=== PATIENT | female | born 1945 | race Caucasian/White ===

== ENCOUNTER → 2016-12-09 | Emergency (ER) | payer MEDICARE, OTHER ==
[~2016-12-09] VITALS: Ht 160 cm; Wt 60.0 kg
[~2016-12-09] MED LIST: AMIT10TA6 PO; ATOR80TA75 PO; CARI350T29 PO; DULO60CA59 PO; LEVO25TA53 PO; LORA-401 PO; LORA1TAB PO; NICARDipine HCL 30 MG CAPSULE PO ONE; OMEP20CA16 PO; PROP20TA4 PO; PROPANOLOL PO; SUCR1TAB56 PO; TRAM-40 PO; [UNRECOGNIZED DRUG - CODE] PO
[2016-12-09 21:17] VITALS: Ht 160 cm; Wt 60.0 kg
--- NOTE | 2016-12-09 22:35 | ERD ---
ER Documentation Chief Complaint Date/Time DATE: 12/09/16 TIME: 22:34 Chief Complaint HTN HPI This is 71-year-old female has been taking Mucomyst for a upper respiratory illness for the past couple days is complaining of high blood pressure readings today of 160/114 at the highest usually 160s over 80s. She is completely asymptomatic no headache blurry vision dizziness chest pain shortness of breath or fever or abdominal pain or back pain ROS All systems reviewed and are negative except as per history of present illness. Medications Home Meds Reported Medications Atorvastatin* (Atorvastatin*) 80 Mg Tablet, 80 MG PO QHS, #30 TAB 12/09/16 Propranolol Hcl* (Propranolol Hcl*) 20 Mg Tablet, 20 MG PO BID, TAB 12/09/16 Levothyroxine Sodium* (Levothyroxine Sodium*) 25 Mcg Tablet, 25 MCG PO BEFORE BREAKFAST, #30 TAB 12/09/16 Verapamil Hcl* (Isoptin*) 80 Mg Tab, 80 MG PO TID, TAB 12/09/16 Duloxetine Hcl* (Duloxetine Hcl*) 60 Mg Capsule.dr, 60 MG PO BID, #30 CAP 12/09/16 Carisoprodol* (Carisoprodol*) 350 Mg Tablet, 350 MG PO QHS Y for MUSCLE SPASMS, TAB 12/09/16 Lorazepam* (Lorazepam*) 1 Mg Tablet, 2 MG PO TID Y for ANXIETY, #30 TAB TAKE 1/2 QAM AND 1/2 QPM, AND 1 QHS 12/09/16 Discontinued Reported Medications [Propanolol] No Conflict Check, 5 MG PO TID 07/10/14 Amitriptyline Hcl* (Amitriptyline Hcl*) 10 Mg Tablet, 10 MG PO TID 05/07/11 Lorazepam* (Ativan*) 1 Mg Tablet, 1 MG PO TID 05/07/11 Allergies Allergies: Coded Allergies: Tetanus Vaccines and Toxoid (Verified Allergy, Unknown, SWELLING OF BODY, 12/09/16) PMhx/Soc Anesthesia Reaction: No Hx Neurological Disorder: No Hx Respiratory Disorders: No Hx Cardiac Disorders: Yes (HTN, DYSLIPIDEMIA) Hx Psychiatric Problems: Yes (anxiety) Hx Miscellaneous Medical Probl: No Hx Alcohol Use: No (denies) Hx Substance Use: No (denies) Hx Tobacco Use: No (denies) Smoking Status: Never smoker FmHx Family History: No coronary disease Physical Exam Vitals Vital Signs Date Time Temp Pulse Resp B/P Pulse Ox O2 Delivery O2 Flow Rate FiO2 12/09/16 21:40 97.1 80 18 191/90 100 Room Air 12/09/16 21:17 97.1 89 18 179/93 98 Physical Exam Const: Well-developed, well-nourished Head: Atraumatic, normocephalic Eyes: Normal Conjunctiva, PERRLA, EOMI, normal sclera, no nystagmus ENT: Normal External Ears, Nose and Mouth, moist mucus membranes. Neck: Full range of motion. No meningismus, no lymphadenopathy. Resp: Clear to auscultation bilaterally, no wheezing, rhonchi, rales Cardio: Regular rate and rhythm, no murmurs, S1 S2 present Abd: Soft, non tender x 4, non distended. Normal bowel sounds, no guarding or rebound, no pulsitile abdominal masses or bruits Skin: No petechiae or rashes, no ecchymosis , no maculopapular rash Back: No midline or flank tenderness Ext: No cyanosis, or edema, FROM x 4, normal inspection, neurovascularly intact x 4 Neur: Awake and alert, STR 5/5 x 4, sensation intact x 4, no focal findings, cerebellum intact Psych: Normal Mood and Affect Results 24 hrs Current Medications Medications (Trade) Dose Ordered Sig/Magda Route PRN Reason Start Time Stop Time Status Last Admin Dose Admin Nicardipine HCl (Cardene) 30 mg ONCE ONCE PO 12/09/16 22:00 12/09/16 22:01 DC 12/09/16 21:59 Procedures/MDM Patient says her blood pressure is high because she is taking Mucomyst as this is been a problem in the past. Normal blood pressures in the 140s over 80s. Discharge her blood pressures adequate after Cardene p.o. Departure Diagnosis: Primary Impression: Hypertension Hypertension type: essential hypertension Qualified Code: I10 - Essential hypertension Condition: Stable Patient Instructions: High Blood Pressure (Hypertension) Referrals: BRIDGET JAIMES MD (PCP) STEFANI SCHWAB DO Dec 09, 2016 22:35
[2016-12-09 22:57] VITALS: BP 178/86; PULSE 72; RESP 18; TEMP 97.1
== END | disposition home or self-care (01) ==
LOC: E/R 20:17
DX: I10 Essential (primary) hypertension (principal)
CPT/HCPCS: 99283

== ENCOUNTER 2017-08-14 17:15 | Emergency (ER) | END 2017-08-14 20:06 | disposition home or self-care (01) | DX: I10 Essential (primary) hypertension (principal); E03.9 Hypothyroidism, unspecified | CPT/HCPCS: 36415; 80053; 83690; 84484; 85025; 93005; 99284; J7030 ==

== ENCOUNTER 2017-10-14 08:04 | Inpatient (IN) | END 2017-10-15 12:35 | disposition home or self-care (01) | DRG 483 ==